=== PATIENT | male | born 1940 | race Caucasian/White ===

== ENCOUNTER 2017-04-16 05:56 | Day surgery (SDC) | payer MEDICARE, BC ==
[~2017-04-16] VITALS: Ht 190.5 cm; Wt 86.2 kg
[~2017-04-16 05:56] MED LIST: ALLERGY TABLET PO; Dyazide 37.5-21 EACH PO; FISH OIL 1,2001 EACH PO; Hair, Skin & N1 EACH PO; LUMIGAN2.5 ML BOTHEYES; MELA3 PO; Mobic15 MG PO; POTASSIUM PO; RANI150 PO; Vsl#3 Capsule1 EACH PO
[2017-04-17 04:46] LABS: BASOPHILS ABSOLUTE AUTO 0.02 K/mm3 (0.00-0.23); BASOPHILS PERCENT AUTO 0 % (0-2); EOSINOPHILS ABSOLUTE AUTO 0.14 K/mm3 (0.00-0.68); EOSINOPHILS PERCENT AUTO 2 % (0-6); Hematocrit 36.2 % (37.0-53.0); IMMATURE GRAN ABSOLUTE AUTO 0.03 K/mm3 (0.00-0.10); IMMATURE GRAN PERCENT AUTO 0 % (0-1); LYMPHOCYTES ABSOLUTE AUTO 0.68 K/mm3 (0.84-5.20); LYMPHOCYTES PERCENT AUTO 8 % (21-46); MONOCYTES ABSOLUTE AUTO 0.89 K/mm3 (0.16-1.47); MONOCYTES PERCENT AUTO 11 % (4-13); Mean Corpuscular HGB 29.7 pg (26.0-34.0); Mean Corpuscular HGB Conc 33.1 g/dL (31.5-36.5); Mean Corpuscular Volume 90 fL (80-100); Mean Platelet Volume 9.9 fL (9.1-12.4); NEUTROPHILS PERCENT AUTO 79 % (41-73); Platelet Count 193 K/mm3 (150-400); RDW Coefficient Variation 13.4 % (11.7-14.2); RDW Standard Deviation 43.9 fL (35.1-46.3); Red Blood Cell Count 4.04 M/mm3 (4.30-5.90); White Blood Cell Count 8.16 K/mm3 (4.00-11.30)
[2017-04-17 05:07] LABS: Anion Gap 8 mmol/L (6-16); Blood Urea Nitrogen 23 mg/dL (8-24); Bun/Creatinine Ratio 21.1 (12.0-20.0); CO2, Blood 28 mmol/L (21-32); Calcium, Blood 8.2 mg/dL (8.5-10.1); Chloride, Blood 101 mmol/L (98-108); Creatinine, Blood 1.09 mg/dL (0.60-1.20); Glomerular Filtration Rate >60 (60-); Glucose, Blood 112 mg/dL (70-99); Potassium, Blood 3.7 mmol/L (3.5-5.5); Sodium, Blood 137 mmol/L (136-145)
[2017-04-17] MEDS ORDERED: OXYC5 PO (11:54)
[2017-04-17] MEDS ORDERED: ASPI325EC PO (11:54)
[2017-04-17] MEDS ORDERED: DOCU100 PO (11:55)
[2018-01-23] MEDS ORDERED: OMEPRAZOLE MAGN20 MG PO (09:02)
[2018-01-28] MEDS ORDERED: FISH OIL 1,0001 EAC2 PO (09:11)
[2018-01-29] MEDS ORDERED: ASPI325 PO (14:49)
[2018-01-29] MEDS ORDERED: OXYC5 PO (14:49)
[2018-01-29] MEDS ORDERED: DOCU100 PO (14:50)
== END 2017-04-17 12:30 | disposition home or self-care (01) ==
LOC: PRE IP 05:56 → SURS 05:56 → ORSCMMR 05:56 → PRE IP 07:30 → EDSTATUS 07:30 → SURS 11:10 → ORSCMMR 04-17 12:30
PROVIDERS: Orthopaedic Surgery
PROC: 0SRD0J9 Replacement of Left Knee Joint with Synthetic Substitute, Cemented, Open Approach (ICD-10-PCS; principal; 2017-04-16 07:30)
DX: M17.12 Unilateral primary osteoarthritis, left knee (principal); I10 Essential (primary) hypertension; Z79.899 Other long term (current) drug therapy
CPT/HCPCS: 36415; 73560-LT; 80048; 85025; 86850; 86900; 86901; 88300; 97110; 97116; 97161; 97530; C1713; C1776; G8978; G8979; J0171; J0690; J0735; J1100; J1885; J2250; J2405; J2795; J3010; J7120

== ENCOUNTER → 2017-08-05 | Outpatient (CLI) | payer MEDICARE, BC ==
[~2017-08-05] MED LIST changes: +ASPI325EC PO; +DOCU100 PO; +OXYC5 PO
[2017-08-05 10:52] LABS: BASOPHILS ABSOLUTE AUTO 0.05 K/mm3 (0.00-0.23); BASOPHILS PERCENT AUTO 1 % (0-2); EOSINOPHILS ABSOLUTE AUTO 0.11 K/mm3 (0.00-0.68); EOSINOPHILS PERCENT AUTO 3 % (0-6); Hemoglobin 14.3 g/dL (13.5-17.5); IMMATURE GRAN ABSOLUTE AUTO 0.02 K/mm3 (0.00-0.10); IMMATURE GRAN PERCENT AUTO 1 % (0-1); LYMPHOCYTES ABSOLUTE AUTO 0.88 K/mm3 (0.84-5.20); LYMPHOCYTES PERCENT AUTO 20 % (21-46); MONOCYTES ABSOLUTE AUTO 0.56 K/mm3 (0.16-1.47); MONOCYTES PERCENT AUTO 13 % (4-13); Mean Corpuscular HGB 29.3 pg (26.0-34.0); Mean Corpuscular HGB Conc 32.5 g/dL (31.5-36.5); Mean Corpuscular Volume 90 fL (80-100); NEUTROPHILS ABSOLUTE AUTO 2.76 K/mm3 (1.96-9.15); NEUTROPHILS PERCENT AUTO 63 % (41-73); Platelet Count 273 K/mm3 (150-400); RDW Coefficient Variation 13.7 % (11.7-14.2); RDW Standard Deviation 45.4 fL (35.1-46.3); Red Blood Cell Count 4.88 M/mm3 (4.30-5.90); White Blood Cell Count 4.38 K/mm3 (4.00-11.30)
[2017-08-05 11:11] LABS: Alanine Aminotransfer (ALT/SGP 23 U/L (12-78); Albumin, Blood 3.8 g/dL (3.4-5.0); Alk Phos 117 U/L (40-126); Anion Gap 8 mmol/L (6-16); Aspartate Aminotrans (AST/SGOT 18 U/L (12-37); Bilirubin, Total 0.4 mg/dL (0.1-1.0); Blood Urea Nitrogen 21 mg/dL (8-24); Bun/Creatinine Ratio 18.3 (12.0-20.0); CO2, Blood 31 mmol/L (21-32); Calcium, Blood 9.3 mg/dL (8.5-10.1); Chloride, Blood 103 mmol/L (98-108); Creatinine, Blood 1.15 mg/dL (0.60-1.20); Globulin, Blood 3.7 g/dL (2.2-4.0); Glomerular Filtration Rate >60 (60-); Glucose, Blood 113 mg/dL (70-99); Potassium, Blood 3.6 mmol/L (3.5-5.5); Sodium, Blood 142 mmol/L (136-145); Thyroid Stimulating Hormone 2.282 uIU/mL (0.360-4.800); Total Protein, Blood 7.5 g/dL (6.4-8.2); Troponin I <0.017 ng/mL (0.000-0.040)
== END ==
LOC: LAB EV 10:41 → LAB SHORT 10:41
PROVIDERS: Physician Assistant
DX: R11.0 Nausea (principal); R19.7 Diarrhea, unspecified; R53.83 Other fatigue
CPT/HCPCS: 80053; 82607; 83735; 84443; 84484; 85025

== ENCOUNTER → 2017-08-06 | Outpatient (CLI) | payer MEDICARE, BC ==
[2017-08-06 10:35] LABS: Adenovirus F 40/41 Not Detected (NOT DETECT); Astrovirus Not Detected (NOT DETECT); Campylobacter Sp Not Detected (NOT DETECT); Cryptosporidium Not Detected (NOT DETECT); Cyclospora Cayetanensis Not Detected (NOT DETECT); E. Coli O157 Not Detected (NOT DETECT); Entamoeba Histolytica Not Detected (NOT DETECT); Enteroaggregative E. coli-EAEC Not Detected (NOT DETECT); Enteropathogenic E. coli-EPEC Not Detected (NOT DETECT); Enterotoxigenic E. coli-ETEC Not Detected (NOT DETECT); Giardia Lamblia Not Detected (NOT DETECT); Norovirus GI/GII Not Detected (NOT DETECT); Plesiomonas Shigelloides Not Detected (NOT DETECT); Rotavirus A Not Detected (NOT DETECT); Salmonella Sp Not Detected (NOT DETECT); Sapovirus Not Detected (NOT DETECT); Shiga Toxin-prod E. coli-STEC Not Detected (NOT DETECT); Shigella/Enteroin E. coli-EIEC Not Detected (NOT DETECT); Vibrio Cholerae Not Detected (NOT DETECT); Vibrio Sp Not Detected (NOT DETECT); Yersinia Enterocolitica Not Detected (NOT DETECT)
== END | disposition home or self-care (01) ==
LOC: LAB EV 07:20
PROVIDERS: Physician Assistant
DX: R19.7 Diarrhea, unspecified (principal)
CPT/HCPCS: 87507

== ENCOUNTER → 2017-08-10 | Outpatient (CLI) | payer MEDICARE, BC | END | disposition home or self-care (01) | LOC: LAB SHORT 10:24 → LAB EV 10:24 | DX: R19.7 Diarrhea, unspecified (principal) | CPT/HCPCS: 87338 ==

== ENCOUNTER → 2020-01-27 | Outpatient (CLI) | payer MEDICARE, BC ==
[~2020-01-27] MED LIST changes: +ASPI325 PO; +FISH OIL 1,0001 EAC2 PO; +OMEPRAZOLE MAGN20 MG PO
== END ==
LOC: LAB SHORT 16:02 → PLD 16:02
DX: C44.519 Basal cell carcinoma of skin of other part of trunk (principal); L57.0 Actinic keratosis
CPT/HCPCS: 88305

== ENCOUNTER → 2020-03-21 | Outpatient (CLI) | payer MEDICARE, BC | END | disposition home or self-care (01) | LOC: LAB SHORT 08:43 → LAB 08:43 | DX: C44.519 Basal cell carcinoma of skin of other part of trunk (principal) | CPT/HCPCS: 88305 ==

== ENCOUNTER → 2022-01-03 | Outpatient (CLI) | payer MEDICARE, OTHER | LOC: LAB SHORT 11:44 → PLD 11:44 | DX: D48.5 Neoplasm of uncertain behavior of skin (principal) | CPT/HCPCS: 88305 ==